=== PATIENT | female | born 1975 | race African-American/Black ===

== ENCOUNTER 2016-06-29 22:36 | Emergency (ER) | payer SELFPAY | END 2016-06-29 23:46 | disposition home or self-care (01) | LOC: D.ER 22:36 | DX: S62.304A Unspecified fracture of fourth metacarpal bone, right hand, initial encounter for closed fracture (principal); X58.XXXA Exposure to other specified factors, initial encounter; Y93.89 Activity, other specified; Y92.019 Unspecified place in single-family (private) house as the place of occurrence of the external cause; F17.200 Nicotine dependence, unspecified, uncomplicated ==